=== PATIENT | male | born 1955 | race Caucasian/White ===

== ENCOUNTER 2017-06-14 11:07 | Emergency (ER) | payer OTHER ==
[~2017-06-14] VITALS: Ht 188 cm; Wt 95.7 kg
[~2017-06-14 11:07] MED LIST: ADULT ASPIRIN81 MG; BRILINTA90 MG; LOSARTAN POTASS25 MG; NEXIUM5 MG; TOPROL XL50 M1
== END 2017-06-14 15:30 | disposition home or self-care (01) ==
LOC: ER 11:07
DX: M79.661 Pain in right lower leg (principal); I82.491 Acute embolism and thrombosis of other specified deep vein of right lower extremity

== ENCOUNTER → 2021-01-04 | Outpatient (CLI) | payer OTHER | END | disposition home or self-care (01) | LOC: NUCLEAR 12-31 07:00 | PROVIDERS: ATTEND Internal Medicine Cardiovascular Disease | DX: I50.1 Left ventricular failure, unspecified (principal) | CPT/HCPCS: 78452; 93017; A9500 ==